=== PATIENT | female | born 1990 ===

== ENCOUNTER 2019-04-05 07:06 | Inpatient (IN) | payer OTHER ==
[~2019-04-05] VITALS: Ht 165.1 cm; Wt 95.3 kg
[2019-04-05] MEDS ORDERED: PRENATAL TABLE1 EAC1 PO (08:43)
== END 2019-04-07 17:56 | disposition home or self-care (01) | DRG 807 ==
LOC: OB/GYN 07:06 → LDR 07:06 → OB/GYN 16:18
PROVIDERS: ADMIT Obstetrics & Gynecology
PROC: 10E0XZZ Delivery of Products of Conception, External Approach (ICD-10-PCS; principal; 2019-04-05)
PROC: 10907ZC Drainage of Amniotic Fluid, Therapeutic from Products of Conception, Via Natural or Artificial Opening (ICD-10-PCS; 2019-04-05)
PROC: 3E033VJ Introduction of Other Hormone into Peripheral Vein, Percutaneous Approach (ICD-10-PCS; 2019-04-05)
PROC: 4A1HXCZ Monitoring of Products of Conception, Cardiac Rate, External Approach (ICD-10-PCS; 2019-04-05)
DX: O80 Encounter for full-term uncomplicated delivery (principal); Z37.0 Single live birth; Z3A.39 39 weeks gestation of pregnancy; Z22.330 Carrier of Group B streptococcus

== ENCOUNTER 2021-04-23 06:15 | Day surgery (SDC) | payer OTHER ==
[~2021-04-23 06:15] MED LIST: PRENATAL TABLE1 EAC1 PO
== END 2021-04-23 15:30 | disposition home or self-care (01) ==
LOC: CIR.AMB 06:15
PROVIDERS: ATTEND Obstetrics & Gynecology
DX: O02.1 Missed abortion (principal); Z20.822 Contact with and (suspected) exposure to COVID-19

== ENCOUNTER 2022-04-22 06:55 | Inpatient (IN) | payer OTHER ==
[~2022-04-22] VITALS: Ht 165.1 cm; Wt 103.4 kg
[2022-04-22] MEDS ORDERED: PRENATAL TABLE1 EAC5 (08:30)
== END 2022-04-24 15:44 | disposition home or self-care (01) | DRG 807 ==
LOC: OB/GYN 06:55 → LDR 06:55 → OB/GYN 14:40
PROVIDERS: ADMIT Obstetrics & Gynecology; ATTEND Obstetrics & Gynecology
PROC: 10E0XZZ Delivery of Products of Conception, External Approach (ICD-10-PCS; principal; 2022-04-22)
PROC: 0HQ9XZZ Repair Perineum Skin, External Approach (ICD-10-PCS; 2022-04-22)
PROC: 4A1HXCZ Monitoring of Products of Conception, Cardiac Rate, External Approach (ICD-10-PCS; 2022-04-22)
DX: O70.0 First degree perineal laceration during delivery (principal); Z37.0 Single live birth; Z3A.39 39 weeks gestation of pregnancy; Z20.822 Contact with and (suspected) exposure to COVID-19